=== PATIENT | female | born 1945 | race Caucasian/White ===

== ENCOUNTER 2019-08-14 07:31 | Emergency (ER) | payer OTHER ==
[~2019-08-14] VITALS: Ht 175.3 cm; Wt 70.3 kg
[~2019-08-14 07:31] MED LIST: ASCO500 PO; Desyrel50 MG PO; ENOX40I SC; FENT25TP TD; FISH1000 PO; MULTI VITAMIN1 EACH PO; PROBIOTIC FORM1 EACH PO; PROBIOTIC1 EAC1; [UNRECOGNIZED DRUG - OTHER] PO
[2019-08-14] MEDS ORDERED: [UNRECOGNIZED DRUG - OTHER] (08:05)
[2019-08-14] MEDS ORDERED: ADRENAL SUPPLEMENT (08:05)
[2019-08-14 08:26] LABS: Source, Urine Clean Catch
[2019-08-14 09:15] LABS: BASOPHILS ABSOLUTE AUTO 0.07 K/mm3 (0.00-0.23); BASOPHILS PERCENT AUTO 1 % (0-2); EOSINOPHILS ABSOLUTE AUTO 0.12 K/mm3 (0.00-0.68); EOSINOPHILS PERCENT AUTO 2 % (0-6); Hematocrit 41.9 % (33.0-51.0); Hemoglobin 13.3 g/dL (11.5-16.0); IMMATURE GRAN ABSOLUTE AUTO 0.01 K/mm3 (0.00-0.10); IMMATURE GRAN PERCENT AUTO 0 % (0-1); LYMPHOCYTES ABSOLUTE AUTO 1.21 K/mm3 (0.84-5.20); LYMPHOCYTES PERCENT AUTO 23 % (21-46); MONOCYTES ABSOLUTE AUTO 0.43 K/mm3 (0.16-1.47); MONOCYTES PERCENT AUTO 8 % (4-13); Mean Corpuscular HGB 29.2 pg (26.0-34.0); Mean Corpuscular HGB Conc 31.7 g/dL (31.5-36.5); Mean Corpuscular Volume 92 fL (80-100); Mean Platelet Volume 9.7 fL (9.1-12.4); NEUTROPHILS ABSOLUTE AUTO 3.37 K/mm3 (1.96-9.15); NEUTROPHILS PERCENT AUTO 65 % (41-73); Platelet Count 273 K/mm3 (150-400); RDW Coefficient Variation 11.9 % (11.7-14.2); RDW Standard Deviation 40.7 fL (35.1-46.3); Red Blood Cell Count 4.56 M/mm3 (3.80-5.20); White Blood Cell Count 5.21 K/mm3 (4.00-11.30)
[2019-08-14 09:18] LABS: Appearance, Urine Clear (Clear); Bilirubin, Urine Neg (Neg); Blood, Urine Neg (Neg); Color, Urine Yellow (P-Yellow); Glucose Qualitative, Urine Neg (Neg); Ketones, Urine Neg (Neg); Leukocyte Esterase, Urine Neg (Neg); Nitrite, Urine Neg (Neg); Protein, Urine Neg (Neg); Specific Gravity, Urine 1.005 (1.003-1.022); Urobilinogen, Urine NORM (Normal)
[2019-08-14 09:35] LABS: C-REACTIVE PROTEIN, EXT RANGE <0.290 mg/dL (0.000-0.300); Free Thyroxine 1.14 ng/dL (0.70-1.60)
[2019-08-14 09:36] LABS: Alanine Aminotransfer (ALT/SGP 19 U/L (12-78); Albumin, Blood 3.6 g/dL (3.4-5.0); Albumin/Globulin Ratio 0.9 (0.8-1.8); Alk Phos 66 U/L (50-136); Anion Gap 6 mmol/L (6-16); Aspartate Aminotrans (AST/SGOT 22 U/L (12-37); Bilirubin, Total 0.3 mg/dL (0.1-1.0); Blood Urea Nitrogen 11 mg/dL (8-24); Bun/Creatinine Ratio 14.9 (12.0-20.0); CO2, Blood 25 mmol/L (21-32); Calcium, Blood 8.8 mg/dL (8.5-10.1); Chloride, Blood 108 mmol/L (98-108); Creatinine, Blood 0.74 mg/dL (0.40-1.00); Globulin, Blood 3.8 g/dL (2.2-4.0); Glomerular Filtration Rate >60 (60-); Glucose, Blood 96 mg/dL (70-99); Potassium, Blood 3.9 mmol/L (3.5-5.5); Sodium, Blood 139 mmol/L (136-145); Thyroid Stimulating Hormone 0.767 uIU/mL (0.360-4.800); Total Protein, Blood 7.4 g/dL (6.4-8.2)
== END 2019-08-14 10:24 | disposition home or self-care (01) ==
LOC: ER 07:31
PROVIDERS: Emergency Medicine
DX: H04.123 Dry eye syndrome of bilateral lacrimal glands (principal); H11.9 Unspecified disorder of conjunctiva; N34.2 Other urethritis; I10 Essential (primary) hypertension; Z91.012 Allergy to eggs; Z88.2 Allergy status to sulfonamides; Z88.0 Allergy status to penicillin; Z88.6 Allergy status to analgesic agent; Z88.5 Allergy status to narcotic agent
CPT/HCPCS: 36415; 80053; 81003; 84439; 84443; 85025; 85651; 86140; 99283

== ENCOUNTER 2021-03-23 09:06 | Day surgery (SDC) | payer OTHER ==
[~2021-03-23] VITALS: Ht 175.3 cm; Wt 73.0 kg
[~2021-03-23 09:06] MED LIST changes: +ADRENAL SUPPLEMENT; +[UNRECOGNIZED DRUG - OTHER]
[2021-03-23] MEDS ORDERED: TRAZ50 PO (09:36)
--- NOTE | 2021-03-23 11:35 | NUR ---
03/23/21 1135 Loretta Rajput BUPIVACAINE 0.5% 30 MLS MIXED W/ EPI 0.15ML PER ORDER TO MAKE BUPIVACAINE 0.5% 1:200,000 FOR INJECTION AT OPSITE BY DR MOSHER FOR PAIN CONTROL.
--- NOTE | 2021-03-23 12:26 | NUR ---
03/23/21 Flori6 Patricia Charles PT TRANSFFERED FROM BED TO CHAIR WELL WITH STAND BY ASSISTANCE. PT DENEIS ANY PAIN AT THIS TIME. PT VS WNL. PT SMILING AND LAUGHING. PT TOLERATING SNACKS WELL. PT ABLE TO MOVE TOES ON THE LEFT FOOT. PT CAP REFILL ON THE LEFT TOES LESS THAN 3SECS. WILL CONTINUE TO MONITOR.
== END 2021-03-23 13:20 | disposition home or self-care (01) ==
LOC: ORSCSDS 09:06
PROVIDERS: Podiatrist Foot & Ankle Surgery
PROC: 0QBP0ZZ Excision of Left Metatarsal, Open Approach (ICD-10-PCS; principal; 2021-03-23 10:40)
DX: M20.5X2 Other deformities of toe(s) (acquired), left foot (principal); M79.7 Fibromyalgia; Z79.899 Other long term (current) drug therapy
CPT/HCPCS: J0171; J0690; J1100; J2250; J2405; J2704; J3010; J7120